=== PATIENT | female | born 1975 | race Caucasian/White ===

== ENCOUNTER 2016-04-04 07:17 | Emergency (ER) | payer MEDICAID | END 2016-04-04 08:29 | disposition home or self-care (01) | LOC: ED 07:17 | DX: M25.511 Pain in right shoulder (principal); E03.9 Hypothyroidism, unspecified; J45.909 Unspecified asthma, uncomplicated; F17.210 Nicotine dependence, cigarettes, uncomplicated; Z88.1 Allergy status to other antibiotic agents ==